=== PATIENT | male | born 1965 | race Caucasian/White ===

== ENCOUNTER 2020-06-19 09:53 | Emergency (ER) | payer SELFPAY ==
[~2020-06-19 09:53] MED LIST: Sodium Chloride 0.9% 100 ML BAG ONE
[2020-06-19] MEDS ORDERED: Iopamidol 370 76% 125 ML VIAL FS ONE (10:49)
[2020-06-19] MEDS ORDERED: Sodium Chloride 0.9% 1,000 ML ONE (10:50)
--- NOTE | 2020-06-19 11:05 | RAD ---
Chest AP view INDICATION: Altered mental status COMPARISON: None FINDINGS: Lungs: The lungs are clear Cardiac silhouette: The cardiomediastinal silhouette appears within normal limits. Pulmonary vasculature: Normal Pleural spaces: No pleural effusion or pneumothorax is demonstrated. Upper abdomen: No abnormality seen. Osseous structures: No acute osseous abnormality. Additional findings: None. IMPRESSION: No acute cardiopulmonary abnormality.
--- NOTE | 2020-06-19 11:09 | CT ---
CT BRAIN WITHOUT CONTRAST: Date: 06/19/2020 HISTORY: Vertigo and confusion. Altered mental status. FINDINGS: No evidence of acute infarct, hemorrhage, midline shift, or abnormal extra-axial fluid collections ar e seen. There is a focal area of decreased attenuation in the anterior limb of the left internal caps ule, likely old lacunar infarction. The ventricular size is normal and the basilar cisterns are paten t. The bony calvarium is intact. There is mild mucosal disease in the paranasal sinuses. IMPRESSION: No CT evidence of acute intracranial process. POS: AH
[2020-06-19 11:15] LABS: Hemoglobin 12.7 g/dL (14.0-18.0); Red Blood Cell (RBC) Count 3.36 mill/uL (4.70-6.10); White Blood Cell (WBC) Count 10.2 thou/uL (4.8-10.8)
[2020-06-19 11:16] LABS: Manual Diff?? YES; Mean Corpuscular HGB CONC 34.3 g/dL (32.0-36.0); Mean Corpuscular Hemoglobin 37.8 pg (27.0-31.0); Mean Platelet Volume 12.2 fL (7.4-10.4); Platelet Count 240 thou/uL (130-400); RBC Distribution Width 13.6 % (11.5-14.5)
[2020-06-19 11:22] LABS: Anisocytosis SLIGHT = 6-15 cells (100X) (0-5/hpf); Band 3 % (5-11); Eosinophils 1 % (0-10); Lymphocytes 25 % (21-51); MDiff Complete? YES; Macrocytosis SLIGHT = 6-15 cells (100X) (0-5/hpf); Monocytes 5 % (0-10); Neutrophil 66 % (42-75); Platelet Morphology Comment Appears Adequate
[2020-06-19 11:29] LABS: CRP (Inflammatory) 4.33 mg/dL (= or < 0.5)
[2020-06-19 11:30] LABS: Sodium 135 mmol/L (136-145)
[2020-06-19 11:32] LABS: BUN (Urea Nitrogen) 7 mg/dL (8.4-25.7); Calc. Creatinine Clearance 0 mL/min (70-130); Carbon Dioxide 25 mmol/L (22-29); Chloride 99 mmol/L (98-107); Estimated GFR-MDRD 67; Potassium 2.5 mmol/L (3.5-5.1)
[2020-06-19 11:33] LABS: Anion Gap 14 mmol/L (10-20); Calcium 9.6 mg/dL (7.8-10.44); Glucose 99 mg/dL (70-105)
[2020-06-19 11:34] LABS: ALT (SGPT) 70 U/L (8-55); AST (SGOT) 239 U/L (5-34); Albumin 2.9 g/dL (3.5-5.0); Alkaline Phosphatase 121 U/L (40-110); Bilirubin, Total 2.3 mg/dL (0.2-1.2); Globulin 4.7 g/dL (2.4-3.5); Protein, Total 7.6 g/dL (6.0-8.3)
[2020-06-19] MEDS ORDERED: NS 0.9% w/ 40 MEQ KCL 1,000 ML IV ONE (12:07)
--- NOTE | 2020-06-19 12:27 | CT ---
CTA Angio Chest W WO Con 06/19/2020 11:32 AM Indication: History of chest pain and elevated d-dimer Technique: Multiple CTA images were obtained of the thorax with IV contrast. 3-D rendering: MIP noam nstructed images were created and reviewed. Comparison: No relevant prior studies available. Findings: Pulmonary arteries: No central or segmental pulmonary embolus is evident. Heart and Aorta: Normal appearing. Mediastinum:Normal appearing. No enlarged lymph nodes. Lungs:Moderate emphysema. No airspace consolidation or suspicious pulmonary nodule identified. Pleural space: Clear. Upper Abdomen: Prominent fatty liver. There is ascites within the upper abdomen. Osseous Structures: There are healing anterolateral right sixth and seventh rib fractures. No acute fracture or subluxation demonstrated. Soft tissues:No abnormality. Other findings:None. Impression: No central or segmental pulmonary embolus. Moderate emphysema. Healing anterolateral right sixth and seventh rib fractures
--- NOTE | 2020-06-19 12:47 | CT ---
CT ABDOMEN WITH CONTRAST CT PELVIS WITH CONTRAST: DATE: 06/19/2020 HISTORY: 54-year-old male with elevated liver function tests and abdominal pain COMPARISON: None TECHNIQUE: IV injection of iodinated contrast media: administered. Oral contrast media:Not administered FINDINGS: Lung bases are grossly clear. Liver is at least mildly enlarged, and has abnormally diffusely low attenuation, which could either r epresent fatty liver or diffuse edema, or both. There is architectural distortion and spiderlike, patchy enhancement in the region of the falciform ligament and surrounding liver parenchyma. No karly l vein or splenic vein thrombosis or occlusion. IVC is patent, including intrahepatic portion. The hepatic veins are diffusely narrowed, possibly by extrinsic compression from the surrounding liver ti ssue. There is a small amount of free fluid around the liver and adjacent to the spleen. There is small amount of fluid in the pelvic cavity and bilateral paracolic gutters. The proximal and mid portions of retrocecal appendix appears slightly thickened and edematous, but th at could be secondary to the mural edema involving the cecum and ascending colon. No major pathology of pancreas, bilateral kidneys, spleen, or adrenals. Urinary bladder is decompressed. Gallbladder is mildly distended, and has mural enhancement and surrounding edema. Anastomotic suture line in the region of the distal sigmoid colon. IMPRESSION: 1) hepatic steatosis versus acute hepatitis. 2) small volume of ascites. 3) suspicious for right colitis. 4) mural enhancement of the gallbladder. This could be secondary to the hepatic disease, or could rep resent acute cholecystitis. 5) nonspecific spiderlike enhancement and architectural distortion of the left lobe of the liver arou nd the falciform ligament. 6) diffuse narrowing of hepatic veins.
[2020-06-19] MEDS ORDERED: Piperacillin/Tazobactam 3.375 GM VIAL ONE (13:06)
[2020-06-19 13:59] LABS: Bilirubin Negative (Negative); Blood, Urine Trace (Negative); Clarity Slightly Cloudy (Clear); Glucose, Urine (Dipstick) Negative (Negative); Ketone, Urine Negative (Negative); Leukocyte Negative (Negative); Nitrite Negative (Negative); Protein, Urine (Dipstick) Negative (Neg-Trace); Specific Gravity, Urine 1.015 (1.005-1.030); Urobilinogen 0.2 mg/dL (Less than 2); pH, Urine 8.5 (5.0-9.0)
[2020-06-19 14:04] LABS: Bacteria/HPF Rare-Few HPF (None Seen); RBC/HPF 0-3 HPF (0-3); WBC/HPF 0-3 HPF (0-3)
[2020-06-19 14:05] LABS: Amphetamine Not Detected (NotDetected); Barbiturates Screen Not Detected (NotDetected); Benzodiazepine Screen Not Detected (NotDetected); Cocaine Metabolite Screen Not Detected (NotDetected); Medtox Control Line Valid? VALID (VALID); Methadone Not Detected (NotDetected); Methamphetamine Not Detected (NotDetected); Opiate Screen Not Detected (NotDetected); Oxycodone Screen Not Detected (NotDetected); Phencyclidine (PCP) Not Detected (NotDetected); THC/Cannabinoid Screen Not Detected (NotDetected); Tricyclic Screen Not Detected (NotDetected)
== END 2020-06-19 14:00 | disposition short-term general hospital (02) ==
LOC: MADERS 09:53
DX: K75.9 Inflammatory liver disease, unspecified (principal); K81.9 Cholecystitis, unspecified; E87.6 Hypokalemia; F17.210 Nicotine dependence, cigarettes, uncomplicated
CPT/HCPCS: 36415; 70450; 71045; 71275; 74177; 80053; 80306; 81003; 81015; 82550; 83605; 83880; 84443; 84484; 85025; 85379; 86140; 87040; 93005; 94760; 96361; 96365; 96368; J2543; J3480; J3490; J7042; J7050; Q9967